=== PATIENT | female | born 1970 | race African-American/Black ===

== ENCOUNTER 2019-09-14 10:17 | Emergency (ER) | payer MEDICAID ==
[~2019-09-14] VITALS: Ht 170.2 cm; Wt 79.0 kg
[2019-09-14] MEDS ORDERED: IBUPROFEN 600MG TABLET PO ONE (11:00)
[2019-09-14 11:28] VITALS: BP 168/90
== END 2019-09-14 13:09 | disposition home or self-care (01) ==
LOC: ER 10:17
DX: S62.644A Nondisplaced fracture of proximal phalanx of right ring finger, initial encounter for closed fracture (principal); I10 Essential (primary) hypertension; Z88.0 Allergy status to penicillin; Z98.890 Other specified postprocedural states; W22.03XA Walked into furniture, initial encounter; Y93.89 Activity, other specified; Y92.018 Other place in single-family (private) house as the place of occurrence of the external cause
CPT/HCPCS: 29515; 73610; 73630; 99283; Z7610